=== PATIENT | male | born 1965 | race Caucasian/White ===

== ENCOUNTER 2019-07-21 17:51 | Observation (INO) ==
[2019-07-21 19:07] LABS: URINE SOURCE CLEAN CATCH
[2019-07-21 19:13] LABS: HEMATOCRIT 43.8 % (42.0-52.0); HEMOGLOBIN 15.4 g/dL (14.0-18.0); MCH 30.8 PG (27-31); MCHC 35.2 g/dL (33-37); MCV 87.6 FL (81-99); MPV 10.7 FL (7.4-10.4); RDW 12.1 % (11.5-14.5); WBC 5.73 X1000 (4.8-10.8)
[2019-07-21 19:14] LABS: BILIRUBIN URINE NEGATIVE (NEGATIVE); BLOOD URINE NEGATIVE (NEGATIVE); COLOR STRAW; GLUCOSE URINE >1000 mg/dL (NEGATIVE); KETONE URINE TRACE mg/dL (NEGATIVE); LEUKOCYTES URINE NEGATIVE (NEGATIVE); NITRITE URINE NEGATIVE (NEGATIVE); PROTEIN URINE NEGATIVE (NEGATIVE); SP GRAVITY URINE 1.029; TURBIDITY URINE CLEAR (CLEAR); UR EPITHELIAL CELLS <10 /HPF (<10); URINE BACTERIA NEGATIVE /HPF; URINE RBC <10 /HPF (<10); URINE WBC <10 /HPF (<10); UROBILINOGEN URINE NORMAL (NORMAL)
[2019-07-21] MEDS ORDERED: HUMULIN R IV ONE (19:42)
[2019-07-21] MEDS ORDERED: NS 1,000 ML IV ONE ×3 (19:42→23:25)
[2019-07-21 19:45] LABS: UR AMPHETAMINES QUAL NONE DETECTED (NONE DETECT); UR BARBITUATES QUAL NONE DETECTED (NONE DETECT); UR BENZODIAZEPIN QUAL NONE DETECTED (NONE DETECT); UR CANNABINOIDS QUAL NONE DETECTED (NONE DETECT); UR COCAINE QUAL NONE DETECTED (NONE DETECT); UR METHADONE QUAL NONE DETECTED (NONE DETECT); UR METHAMPHETAMINE QUAL NONE DETECTED (NONE DETECT); UR OPIATES QUAL NONE DETECTED (NONE DETECT); UR OXYCODONE QUAL NONE DETECTED (NONE DETECT); UR PCP QUAL NONE DETECTED (NONE DETECT); UR PROPOXYPHENE QUAL NONE DETECTED (NONE DETECT); UR TCA QUAL NONE DETECTED (NONE DETECT)
[2019-07-21 19:50] LABS: AGAP 17; ALBUMIN 4.2 g/dL (3.5-5.0); ALKALINE PHOSPHATASE 204 U/L (32-122); BUN 15 mg/dL (8-22); CALCIUM 9.5 mg/dL (8.8-10.2); CHLORIDE 82 mmol/L (98-107); CK PROFILE 47 U/L (24-204); COSMO 295; CREATININE 0.8 mg/dL (0.7-1.2); ESTIMATED GFR > 60; GOT 25 U/L (10-34); GPT 27 U/L (10-44); PHOSPHORUS 2.8 mg/dL (2.7-4.5); POTASSIUM 4.7 mmol/L (3.5-5.1); SODIUM 121 mmol/L (136-145); TCO2 23 mmol/L (25-35); TOTAL PROTEIN 7.5 g/dL (6.3-8.3)
[2019-07-21 19:52] LABS: GLUCOSE 1030 mg/dL (70-104)
[2019-07-21 19:56] LABS: ACETONE SERUM NEGATIVE (NEGATIVE)
--- NOTE | 2019-07-21 20:33 | PROVIDER DOCUMENTATION ---
This chart was entered by Remedios Nance Scribe, acting as scribe for Sebastián Wooten MD. HPI-General Adult - General Chief Complaint: DKA ALERT Stated Complaint: ABNORMAL LABS Time Seen by Provider: 07/21/19 18:34 Source: patient Allergies/Adverse Reactions: Patient Allergies Allergy/AdvReac Type Severity Reaction Status Date / Time shellfish derived Allergy SWELLING Verified 07/21/19 18:48 Home Medications: Home Medication List Medication Instructions Recorded Confirmed Last Taken Type Furosemide [Lasix] 80 mg PO DAILY 04/22/19 07/21/19 06/23/19 08:30 History Pantoprazole [Protonix] 40 mg PO BID #120 tab 06/24/19 07/21/19 Unknown Rx - History of Present Illness -Gen Adult Nature of Presenting Problems: Pt is a 54 yom who presents to the ED with a cc of >500 glucose. Pt states that he was seen by Dr. Caldwell yesterday and told to visit ED due to a glucose of 825. Pt denies any hx of diabetes. Pt does report polydipsia, polyuria, and urinary frequency. Pt is non toxic in appearance. Location of Pain/Injury: reports: none Quality of Pain: reports: none Onset/Duration: reports: 24 hours ago Timing: reports: still present Context/Activities at Onset: reports: none Modifying Factors: improves with: nothing Associated Symptoms: reports: genitourinary problems (frequency) Similar Symptoms Previously?: No Recently seen or treated by another doctor?: Yes - Diabetes Related Context Context: reports: high blood sugar Review of Systems - Adult - REVIEW OF SYSTEMS - ADULT Constitutional: reports: see HPI Eyes: reports: no symptoms reported Ears, Nose, Mouth & Throat: reports: no symptoms reported Cardiovascular: reports: no symptoms reported Respiratory: reports: no symptoms reported Gastrointestinal: reports: no symptoms reported Genitourinary: reports: see HPI, frequency Musculoskeletal: reports: no symptoms reported Integumentary: reports: no symptoms reported Neurological: reports: no symptoms reported Psychiatric: reports: no symptoms reported Endocrine: reports: see HPI, increased thirst, polyuria, other (Pt reports liver cirrhosis.) Hematologic/Lymphatic: reports: no symptoms reported Allergic/Immunologic: reports: no symptoms reported All Other Systems: Reviewed and Negative Past History - Adult - PAST MEDICAL HISTORY-ADULT Review of Records: reports: Old Records Reviewed, Nursing Assessment Review, Medications Reviewed, Social history reviewed & non-contributory. Major Childhood Illnesses: reports: denies history Cardiovascular: reports: denies history Respiratory: reports: denies history Gastrointestinal: reports: denies history Obstetrical/Gynecological: reports: denies history Genitourinary: reports: denies history Musculoskeletal: reports: denies history Neurological: reports: denies history Endocrine/Immune: reports: denies history Other Conditions: reports: denies history - SOCIAL HISTORY Smoking: quit less than 1 year Substance Use: denies Alcohol Use Frequency: sober (former use) Living Situation: family Physical Exam-General - PHYSICAL EXAM-ADULT Initial Vital Signs Reviewed: Yes - CONSTITUTIONAL General Appearance: alert, no apparent distress - EYES Eyes: pink conjunctivae - HEAD, EARS, NOSE, MOUTH & THROAT HENMT: normocephalic/atraumatic - NECK Neck: non-tender, full range of motion, normal inspection - RESPIRATORY Respiratory: chest non-tender, lungs clear, normal breath sounds, no pleuratic chest pain, no respiratory distress, no accessory muscle use. negative: crackles, wheezing - CARDIOVASCULAR Cardiovascular: normal peripheral pulses, regular rate, rhythm, no edema, no gallop, no JVD, no murmur. negative: bradycardia, tachycardia - GASTROINTESTINAL (ABDOMEN) Abdominal Exam: normal bowel sounds, non tender, soft. negative: guarding, tenderness - MUSCULOSKELETAL Back Exam: normal inspection, no CVA tenderness, no vertebral tenderness Extremity: normal range of motion, normal inspection - SKIN Integumentary: normal color, normal turgor, warm/dry. negative: ecchymosis, erythema - NEUROLOGIC Neurologic: grossly normal - PSYCHIATRIC Psych/Mental Status: normal mood/affect, normal thought content, normal thought process, oriented x 3 Progress - PLAN OF CARE/RESULTS Progress/Plan/Lab Results: Vital Signs - 8 hr 07/21/19 18:07 Temperature 98.2 F Pulse Rate 96 H Respiratory Rate 18 Blood Pressure 122/81 O2 Sat by Pulse Oximetry 95 Laboratory Results - last 24 hr 07/21/19 07/21/19 07/21/19 18:14 18:58 18:58 WBC 5.73 RBC 5.00 Hgb 15.4 Hct 43.8 MCV 87.6 MCH 30.8 MCHC 35.2 RDW Std Deviation 12.1 Plt Count 160 MPV 10.7 H POC Glucose 500 H Troponin T High Sens Plasma Lactate 2.3 H Urine Source Urine Color Urine Turbidity Urine pH Ur Specific [place] Urine Protein Ur Glucose (Stick) Ur Ketones (Stick) Urine Blood Urine Nitrite Urine Bilirubin Urobilinogen Dipstick Urine Leukocytes Urine WBC (Auto) Urine RBC (Auto) U Epithel Cells (Auto) Urine Bacteria (Auto) 07/21/19 07/21/19 18:58 18:58 WBC RBC Hgb Hct MCV MCH MCHC RDW Std Deviation Plt Count MPV POC Glucose Troponin T High Sens 11 Plasma Lactate Urine Source CLEAN CATCH Urine Color STRAW Urine Turbidity CLEAR Urine pH 7.0 Ur Specific [place] 1.029 Urine Protein NEGATIVE Ur Glucose (Stick) >1000 A Ur Ketones (Stick) TRACE A Urine Blood NEGATIVE Urine Nitrite NEGATIVE Urine Bilirubin NEGATIVE Urobilinogen Dipstick NORMAL Urine Leukocytes NEGATIVE Urine WBC (Auto) <10 Urine RBC (Auto) <10 U Epithel Cells (Auto) <10 Urine Bacteria (Auto) NEGATIVE Orders Category Date Time Status Cardiac Monitoring DIRECTED Care 07/21/19 18:16 Active FSBS/Accucheck Result Q1H Care 07/21/19 18:16 Active Saline Loc NOW Care 07/21/19 18:16 Active Vital Signs Order Q1H Care 07/21/19 18:16 Active ACETONE SERUM [CHEM] Stat Lab 07/21/19 18:58 Received CBC WITH NO DIFF [HEME] Stat Lab 07/21/19 18:58 Completed CK PROFILE [SP CHEM] Stat Lab 07/21/19 18:58 Received COMPREHENSIVE METABOLIC PANEL [CHEM] Stat Lab 07/21/19 18:58 Received LACTATE, PLASMA [CHEM] Stat Lab 07/21/19 18:58 Completed MAGNESIUM [CHEM] Stat Lab 07/21/19 18:58 Received PHOSPHORUS [CHEM] Stat Lab 07/21/19 18:58 Received TROPONIN T HIGH SENSITIVITY Stat Lab 07/21/19 18:58 Completed URINALYSIS [URINALYSIS] Stat Lab 07/21/19 18:58 Completed URINE DRUG SCREEN PL Stat Lab 07/21/19 18:58 Received 0.9% Sodium Chloride Inj [Ns] 1,000 ml Med 07/21/19 19:42 Active IV 999 mls/hr Insulin Human Regular [Humulin R] Med 07/21/19 19:42 Once 10 unit IV NOW ONE EKG [EKG] Routine Ther 07/21/19 18:16 Ordered Result Diagrams: 07/21/19 18:58 07/21/19 18:58 - CONSULTS/PCP/HOSPITALIST Notification #1 *Consult/PCP/Hospitalist*: Dr. Shin, hospitalist Time Discussed: 20:30 Reason/Comments: recheck glucose until < 500, then admit on sliding scale Consult Disposition: Admit Departure - Departure Date of Disposition Decision: 07/21/19 Time of Disposition Decision: 23:36 DIAGNOSIS: Diabetes mellitus, new onset Disposition: ADMITTED INPATIENT 09 Certified Medical Emergency: Emergent Condition: Stable Referrals and Follow-Ups: Elie Shin MD [Primary Care Provider] - - Critical Care Note This patient required my direct & personal management of CC.: No Attestation - Physician/ JESSICA Attestation Patient care was provided by Advanced Practice Provider:: No The physician spent face to face time with patient:: Yes Advanced Practice Provider documentation review:: Supervising physician onsite and consulted in the evaluation and care of this patient. The physician did have a face to face encounter with the patient. This chart was documented by the indicated scribe, (Remedios Nance Scribe) and accurately reflects the services I performed and decisions made by me, Sebastián Wooten MD, as attested by the provider's signature.
[2019-07-21] MEDS ORDERED: HUMULIN R (PARKWAY) IV ONE (22:30)
[2019-07-21] MEDS ORDERED: ZOFRAN IV PRN (23:25)
[2019-07-21] MEDS ORDERED: HUMULIN R (PARKWAY) SUBQ ONE (23:27)
[2019-07-21] MEDS ORDERED: D50W SYRINGE IV PRN ×2 (23:30)
[2019-07-21] MEDS ORDERED: POTASSIUM CHLORIDE 20% LIQUID PO PRN (23:30)
[2019-07-21] MEDS ORDERED: MAGNESIUM SULFATE 2 GM/S.W.I. 2 GM/50 ML IVPB IV PRN (23:30)
[2019-07-21] MEDS ORDERED: POTASSIUM CHLORIDE 20 MEQ/SWI 20 MEQ/100 ML IVPB IV PRN (23:30)
[2019-07-22] MEDS: HUMULIN R (PARKWAY) SUBQ SCH ×6 (01:10→20:30)
[2019-07-22 01:33] LABS: ESTIMATED GFR > 60
[2019-07-22 01:38] LABS: ALBUMIN 3.7 g/dL (3.5-5.0); ALKALINE PHOSPHATASE 168 U/L (32-122); BUN 12 mg/dL (8-22); CALCIUM 9.1 mg/dL (8.8-10.2); CREATININE 0.7 mg/dL (0.7-1.2); GOT 20 U/L (10-34); GPT 24 U/L (10-44); TCO2 25 mmol/L (25-35)
[2019-07-22 01:41] LABS: GLUCOSE 461 mg/dL (70-104)
[2019-07-22 02:44] LABS: AGAP 17
[2019-07-22 02:45] LABS: COSMO 294
[2019-07-22 06:29] LABS: CHLORIDE 95 mmol/L (98-107); POTASSIUM 3.6 mmol/L (3.5-5.1); SODIUM 137 mmol/L (136-145)
[2019-07-22 08:14] LABS: HEMATOCRIT 40.5 % (42.0-52.0); HEMOGLOBIN 14.1 g/dL (14.0-18.0); MCH 30.7 PG (27-31); MCHC 34.8 g/dL (33-37); MCV 88.2 FL (81-99); MPV 10.9 FL (7.4-10.4); RBC 4.59 XMIL (4.7-6.1); RDW 12.2 % (11.5-14.5); WBC 6.43 X1000 (4.8-10.8)
[2019-07-22 08:51] LABS: AGAP 14; ALBUMIN 3.4 g/dL (3.5-5.0); ALKALINE PHOSPHATASE 148 U/L (32-122); BUN 8 mg/dL (8-22); CHLORIDE 99 mmol/L (98-107); COSMO 281; CREATININE 0.5 mg/dL (0.7-1.2); ESTIMATED GFR > 60; GLUCOSE 285 mg/dL (70-104); GOT 27 U/L (10-34); GPT 24 U/L (10-44); MAGNESIUM 1.9 mg/dL (1.5-2.7); PHOSPHORUS 3.2 mg/dL (2.7-4.5); POTASSIUM 3.5 mmol/L (3.5-5.1); SODIUM 136 mmol/L (136-145); TCO2 23 mmol/L (25-35); TOTAL PROTEIN 6.7 g/dL (6.3-8.3)
[2019-07-22] MEDS: GLUCOPHAGE PO SCH ×2 (09:51→17:10)
[2019-07-22] MEDS ORDERED: PNEUMOVAX 23 IM ONE (12:00)
[2019-07-22] MEDS ORDERED: FLU VACCINE IM ONE (12:00)
--- NOTE | 2019-07-22 18:31 | HISTORY AND PHYSICAL ---
CHIEF COMPLAINT: "My blood sugar is high." HISTORY OF PRESENT ILLNESS: This is a 54-year-old gentleman who denies any prior history. He had routine lab work drawn at his primary care physician's office on 07/20/2019 which returned with a blood sugar of 835. The patient has no history of diabetes. In fact, his last glucose less than a year ago was in the 120s. The patient felt he was asymptomatic. He has been taking Lasix. Therefore, he had increased urination. PAST MEDICAL HISTORY: Elevated LFTs, alcoholic cirrhosis with ascites. PAST SURGICAL HISTORY: Cholecystectomy. SOCIAL HISTORY: He denies any illicit drug use. He does drink alcohol. ALLERGIES: Shellfish, which causes swelling. HOME MEDICATIONS: 1. Lasix. 2. Protonix. 3. Spironolactone. REVIEW OF SYSTEMS: Discussed with the patient, with pertinent positives stated in the HPI. He denies any syncope or dizziness, chest pain, palpitations, shortness of breath, cough, any fevers or chills, any night sweats, recent weight loss or weight gain, any nausea, vomiting, diarrhea, constipation, black or bloody vomitus or stools, any hematuria, dysuria, urgency. PHYSICAL EXAMINATION: GENERAL: This is a 54-year-old gentleman who is sitting up on the side of the bed on the medical- surgical floor in no distress. VITAL SIGNS: Blood pressure is 107/70 with a heart rate of 70, respirations are 16, temperature is 97.9 degrees, with room air saturations 95% to 98%. EYES: Pupils are equal, round, and react to light. EOMs are intact. Sclerae are anicteric. HEAD: Head is normocephalic, atraumatic. ENT: Mucous membranes are moist. NECK: Supple with trachea midline. CARDIOVASCULAR: Regular rate and rhythm. S1 and S2 appreciated. He has no lower extremity edema. Calves are nontender bilaterally with peripheral pulses palpable x4 extremities. PULMONARY: Breath sounds are clear with no increased work of breathing noted. Chest rises and falls symmetrically with respiration. GASTROINTESTINAL: Abdomen is soft, nontender, nondistended, with bowel sounds in all 4 quadrants. GENITOURINARY: No CVA nor suprapubic tenderness. NEUROLOGIC: He is alert and oriented x3. SKIN: Warm and dry. LABS: WBC is 5.7 with hemoglobin of 15, hematocrit 43, and platelets of 160,000. Sodium is 121, potassium 4.7, BUN 15, creatinine 0.8 with a glucose of 1030, magnesium 2. Urinalysis has greater than 1000 glucose, otherwise essentially negative. Urine drug screen reveals none detected. Acetone negative. ASSESSMENT: 1. New onset diabetes mellitus. 2. Hyperosmolar hyperglycemic state. 3. Alcoholic cirrhosis. 4. Alcohol use and abuse. PLAN: 1. The patient has been admitted to the medical-surgical floor at [facility]. 2. He has received 2 saline boluses and is currently receiving fluids at 150 mL an hour. 3. At present, blood sugars are in the 250 to 280 range. We will continue to monitor blood sugars with sliding scale insulin. We will start metformin 500 mg p.o. b.i.d. Dietitian consult. 4. Hyponatremia. This is relative secondary to elevated blood sugar. Corrected sodium for blood sugar is 143. We will continue with intravenous hydration and trend his labs. 5. Alcohol use and abuse. Aware. 6. Alcoholic cirrhosis. Aware. At present, liver functions are within normal limits. 7. Plan was discussed with Dr. Shin. Further treatments pending hospital course. Dictated by DEMARIO Sutherland for Elie Shin MD cc: DEMARIO Sutherland MD
--- NOTE | 2019-07-22 22:15 | HISTORY AND PHYSICAL ---
ADDENDUM: Patient seen and examined by myself. Full note dictated and discussed with nurse practitioner. Patient actually presented to the office 2 days ago for routine checkup and labs. Denied any problems at the time. His labs returned with a blood sugar of 800. He was asked to come to the ER. At that time, it was actually 1000. Does have some mild blurry vision, but he notes that is much improved. States he has been fatigued. He has had increased urination. We are going to admit him to the hospital and treat his sugars accordingly. cc: Elie Shin MD
[2019-07-23] MEDS: HUMULIN R (PARKWAY) SUBQ SCH ×3 (01:02→08:51)
[2019-07-23 07:54] VITALS: BP 104/71
[2019-07-23] MEDS: GLUCOPHAGE PO SCH (08:43)
--- NOTE | 2019-07-24 17:36 | DISCHARGE SUMMARY ---
ADMISSION DATE: 07/21/2019 DISCHARGE DATE: 07/23/2019 DISCHARGE DIAGNOSES: 1. New onset diabetes. 2. Alcoholic cirrhosis. 3. Chronic alcohol abuse although currently not using, per the patient 4. Hyponatremia resolved. CONSULTATIONS: None. PROCEDURES: None. BRIEF HOSPITAL COURSE: The patient is a 54-year-old male who presented to the hospital after being told in the office. While in the office, he was noted to have blood sugar on laboratory value of 800, presented to the ER and it was actually up to 1000. The patient miraculously enough was completely asymptomatic. He was having some polyuria although he felt this was secondary to his Lasix. He stated he had been hungry, so he has been drinking milkshakes and eating desserts more than he usually does. He actually had blood tested in the office a couple of months ago about 6 months ago. His blood sugar was 114. Thankfully the patient had a completely uneventful hospital course. His blood sugar dramatically improved with the amish of normal saline boluses and occasional sliding scale insulin. It is unlikely that he has developed type 1 diabetes, although C-peptide is still pending. The patient had a great improvement even with just Glucophage. He is down into the upper 200s. DISPOSITION: Patient will be discharged home. He will follow up in the office and assuming his C- peptide is normal, we will stop his insulin. We will continue him on metformin and consider Trulicity. Greater than 30 minutes was spent in total care. cc: Elie Shin MD
== END 2019-07-23 11:48 | disposition home or self-care (01) ==
LOC: P.ED 17:51 → INTOOBSV 17:52 → P.MEDSURG 17:52
PROVIDERS: ATTEND Family Medicine